=== PATIENT | female | born 1980 ===

== ENCOUNTER → 2019-01-03 | Outpatient (REF) | payer OTHER ==
[2019-01-03 09:30] LABS: PLATELET COUNT, AUTOMATED 323 K/uL (150-450)
== END ==
LOC: ZZSTITCHES 09:17
PROVIDERS: ATTEND Physician Assistant
DX: R07.9 Chest pain, unspecified (principal); R10.816 Epigastric abdominal tenderness; R11.2 Nausea with vomiting, unspecified
CPT/HCPCS: 82040; 82150; 82247; 82310; 82374; 82435; 82565; 82947; 83690; 84075; 84132; 84155; 84295; 84450; 84460; 84520; 85025